=== PATIENT | male | born 1985 ===

== ENCOUNTER 2016-11-15 16:59 | Emergency (ER) | payer OTHER ==
[2016-11-15 17:06] VITALS: BP 147/75; PULSE 66; RESP 16; TEMP 98.2; O2SAT 100
--- NOTE | 2016-11-15 17:41 | C.PDOC ---
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 Patient denies weakness, numbness, fever, nausea, vomiting, other injuries. No other complaints at this time. Time Seen by Provider: 11/15/16 17:16 Chief Complaint (Nursing): Upper Extremity Problem/Injury History Per: Patient History/Exam Limitations: no limitations Onset/Duration Of Symptoms: Hrs Current Symptoms Are (Timing): Still Present Quality: "Pain" Past Medical History Reviewed: Historical Data, Nursing Documentation, Vital Signs Vital Signs: Last Vital Signs Temp 98.2 F 11/15/16 17:03 Pulse 66 11/15/16 17:03 Resp 16 11/15/16 17:03 BP 147/75 11/15/16 17:03 Pulse Ox 100 11/15/16 20:18 - Medical History PMH: No Chronic Diseases Surgical History: No Surg Hx Family History: States: No Known Family Hx - Social History Hx Alcohol Use: No Hx Substance Use: No - Immunization History Hx Tetanus Toxoid Vaccination: No Hx Influenza Vaccination: No Hx Pneumococcal Vaccination: No Review Of Systems Except As Marked, All Systems Reviewed And Found Negative. Constitutional: Negative for: Fever, Chills Gastrointestinal: Negative for: Nausea, Vomiting Musculoskeletal: Positive for: Hand Pain Skin: Negative for: Rash Neurological: Negative for: Weakness, Numbness Physical Exam - Physical Exam Appears: Non-toxic, No Acute Distress Skin: Warm, No Rash, Other (1cm skin avulsion and nail avulsion to right distal 3rd finger) Head: Atraumatic, Normacephalic Eye(s): bilateral: Normal Inspection Oral Mucosa: Moist Chest: Symmetrical Extremity: Normal ROM, Capillary Refill (<2 seconds) Pulses: Left Radial: Normal, Right Radial: Normal Neurological/Psych: Oriented x3, Normal Speech, Normal Motor, Normal Sensation ED Course And Treatment O2 Sat by Pulse Oximetry: 100 (RA) Pulse Ox Interpretation: Normal Medical Decision Making Medical Decision Making: Tetanus vaccine administered Patient examined by Dr. Elizabeth who agreed wound cannot be sutured. Wound was irrigated with 100cc of pressurized betadine and saline. Metal wage was placed in nail bed to promote potential nail growth. Sterile Xero -form dressing placed Disposition - Disposition Referrals: Edson Chaney MD [Staff Provider] - Disposition: HOME/ ROUTINE Disposition Time: 17:41 Condition: GOOD Additional Instructions: Follow up with the Hand surgeon within 1-2 days without fail. KEEP THE FINGER DRY AND COVERED. Prescriptions: Cephalexin [cephalexin] 500 mg PO TID #21 cap Instructions: Skin Avulsion (ED), Nail Avulsion (ED) Forms: Work Excuse Print Language: [id number] - Clinical Impression Clinical Impression: Nail avulsion, Skin avulsion - PA / ACTIVITIES COORDINATOR / Resident Statement MD/DO has reviewed & agrees with the documentation as recorded. - Scribe Statement The provider has reviewed the documentation as recorded by the Brant Brito All medical record entries made by the Brant were at my direction and personally dictated by me. I have reviewed the chart and agree that the record accurately reflects my personal performance of the history, physical exam, medical decision making, and the department course for this patient. I have also personally directed, reviewed, and agree with the discharge instructions and disposition.
== END 2016-11-15 18:04 | disposition home or self-care (01) ==
LOC: C.ER 16:59
DX: S61.302A Unspecified open wound of right middle finger with damage to nail, initial encounter (principal); W45.8XXA Other foreign body or object entering through skin, initial encounter; Y92.89 Other specified places as the place of occurrence of the external cause; Y99.0 Civilian activity done for income or pay